=== PATIENT | female | born 1955 | race African-American/Black ===

== ENCOUNTER 2020-03-08 18:33 | Emergency (ER) | payer BC ==
[~2020-03-08] VITALS: Ht 167.6 cm; Wt 77.0 kg
[2020-03-08] MEDS ORDERED: KETOROLAC 60MG/2ML VIAL IM ONE (19:30)
[2020-03-08] MEDS ORDERED: MORPHINE SULFATE 4 MG/ML CPJ (NOT FOR IM USE) IV STA (21:02)
[2020-03-08] MEDS ORDERED: ONDANSETRON HCL 4MG/2ML INJ IV STA (21:02)
[2020-03-08 21:47] LABS: BASOPHILS % 0.8 % (0.0-2.0); CHLORIDE 108 mEq/L (98-107); EOSINOPHILS % 3.2 % (0.0-5.0); HEMOGLOBIN. 13.4 g/dL (12.0-16.0); LYMPHOCYTES % 19.6 % (20.0-50.0); MEAN CORPUSCULAR HEMOGLOBIN 32.2 pg (28.0-32.0); MEAN CORPUSCULAR VOLUME 96.2 fL (81.0-99.0); MEAN PLATELET VOLUME 8.2 fl (7.4-10.4); MONOCYTES % 6.8 % (2.0-8.0); NEUTROPHILS % 69.6 % (40.0-76.0); PLATELET 251 x1000/uL (130-400); RED BLOOD CELL COUNT 4.16 mill/uL (4.2-5.4); RED CELL DISTRIBUTION WIDTH 13.9 % (11.6-14.6)
[2020-03-08 21:55] LABS: PROTHROMBIN TIME 10.4 sec (9.6-11.0)
[2020-03-09 00:15] VITALS: BP 148/84
[2020-03-09] MEDS ORDERED: ONDANSETRON 4MG ODT PO ONE (00:30)
== END 2020-03-09 01:29 | disposition home or self-care (01) ==
LOC: ER 18:33
DX: S90.01XA Contusion of right ankle, initial encounter (principal); S40.012A Contusion of left shoulder, initial encounter; S80.02XA Contusion of left knee, initial encounter; S80.01XA Contusion of right knee, initial encounter; S60.221A Contusion of right hand, initial encounter; I67.1 Cerebral aneurysm, nonruptured; Z88.2 Allergy status to sulfonamides; V79.40XA Driver of bus injured in collision with unspecified motor vehicles in traffic accident, initial encounter; Y93.89 Activity, other specified; Y92.89 Other specified places as the place of occurrence of the external cause; Y99.8 Other external cause status
CPT/HCPCS: 36415; 70450; 70496; 73030; 73130; 73560; 73610; 80053; 85025; 85610; 96372; 96374; 96375; 99285; J2270; J2405; Q0162; 96376